=== PATIENT | female | born 1975 | race Caucasian/White ===

== ENCOUNTER 2016-12-23 14:57 | Emergency (ER) | payer OTHER | END 2016-12-23 18:40 | disposition short-term general hospital (02) | LOC: ER 14:57 | DX: I63.9 Cerebral infarction, unspecified (principal); I10 Essential (primary) hypertension; G43.909 Migraine, unspecified, not intractable, without status migrainosus; Z79.899 Other long term (current) drug therapy | CPT/HCPCS: 36415; 80307; 96374; J2997 ==